=== PATIENT | male | born 1975 | race Caucasian/White ===

== ENCOUNTER 2023-11-17 10:23 | Outpatient (RCR) | payer BC, SELFPAY | END 2024-04-23 15:14 | disposition home or self-care (01) | LOC: HO.WCC 10:23 | PROVIDERS: PCP Family Medicine; Visit Provider Physician Assistant | DX: E11.622 Type 2 diabetes mellitus with other skin ulcer (principal); L97.812 Non-pressure chronic ulcer of other part of right lower leg with fat layer exposed; I87.2 Venous insufficiency (chronic) (peripheral); I10 Essential (primary) hypertension; Z79.899 Other long term (current) drug therapy | CPT/HCPCS: 11042; 97597; 99212 ==

== ENCOUNTER 2023-11-26 13:30 | Outpatient (REF) | payer BC, SELFPAY ==
--- NOTE | ~2023-11-26 | US_ITS ---
EXAMINATION: NONINVASIVE ASSESSMENT OF THE ARTERIES OF BOTH LOWER EXTREMITIES INCLUDING PVR EXAM AND BILATERAL LOWER EXTREMITY DUPLEX CLINICAL INFORMATION: PVD COMPARISON: None TECHNIQUE: Ankle pulse volume recordings, ankle pressure measurements and ankle brachial indices were obtained of the lower extremity arterial system bilaterally in addition to duplex Doppler techniques with wave form analysis and measurement of velocities in the common femoral, profunda femoral, superficial femoral, popliteal, tibial and peroneal arteries on the right. The study was performed only at rest. FINDINGS: RIGHT LEG 1. Right Ankle-Brachial Index: 1.28 (higher of the DP/PT) >0.97-1.25 = normal - no significant arterial disease 0.75-0.96 = mild peripheral arterial disease 0.5-0.74 = moderate peripheral arterial disease <0.50 = severe peripheral arterial disease <0.30 = critical arterial disease 2. Segmental Pressures (mmHg): Brachial: 117 Ankle: PT 150, DP 144 3. PVR Waveforms: Ankle: normal 4. Direct Duplex: Common femoral artery: 68.2 cm/s, Multiphasic Profunda femoris artery: 51 cm/s, Multiphasic Superficial femoral artery (proximal): 78.1 cm/s, Multiphasic Superficial femoral artery (mid): 70.2 cm/s, Multiphasic Superficial femoral artery (distal): 69.4 cm/s, Multiphasic Popliteal artery: 78.1 cm/s, Multiphasic Mid posterior tibial artery: 71.9 cm/s, Multiphasic Peroneal artery: 32.6 cm/s, Multiphasic Anterior tibial artery: 37.8 cm/s, Multiphasic Dorsalis pedis artery: 16 cm/s, Multiphasic LEFT LE. Left Ankle-Brachial Index: 1.59 (higher of the DP/PT) >0.97-1.25 = normal - no significant arterial disease 0.75-0.96 = mild peripheral arterial disease 0.5-0.74 = moderate peripheral arterial disease <0.50 = severe peripheral arterial disease <0.30 = critical arterial disease 2. Segmental Pressures: Brachial: 113 Ankle: PT 174, DP 186 3. PVR Waveforms: Ankle: normal US/US arterial duplex LE RT IMPRESSION: There is no evidence of any hemodynamically significant lower extremity arterial disease by pressure, waveform or duplex Doppler criteria at rest.
--- NOTE | ~2023-11-26 | US_ITS ---
EXAMINATION: NONINVASIVE ASSESSMENT OF THE ARTERIES OF BOTH LOWER EXTREMITIES INCLUDING PVR EXAM AND BILATERAL LOWER EXTREMITY DUPLEX CLINICAL INFORMATION: PVD COMPARISON: None TECHNIQUE: Ankle pulse volume recordings, ankle pressure measurements and ankle brachial indices were obtained of the lower extremity arterial system bilaterally in addition to duplex Doppler techniques with wave form analysis and measurement of velocities in the common femoral, profunda femoral, superficial femoral, popliteal, tibial and peroneal arteries on the right. The study was performed only at rest. FINDINGS: RIGHT LEG 1. Right Ankle-Brachial Index: 1.28 (higher of the DP/PT) >0.97-1.25 = normal - no significant arterial disease 0.75-0.96 = mild peripheral arterial disease 0.5-0.74 = moderate peripheral arterial disease <0.50 = severe peripheral arterial disease <0.30 = critical arterial disease 2. Segmental Pressures (mmHg): Brachial: 117 Ankle: PT 150, DP 144 3. PVR Waveforms: Ankle: normal 4. Direct Duplex: Common femoral artery: 68.2 cm/s, Multiphasic Profunda femoris artery: 51 cm/s, Multiphasic Superficial femoral artery (proximal): 78.1 cm/s, Multiphasic Superficial femoral artery (mid): 70.2 cm/s, Multiphasic Superficial femoral artery (distal): 69.4 cm/s, Multiphasic Popliteal artery: 78.1 cm/s, Multiphasic Mid posterior tibial artery: 71.9 cm/s, Multiphasic Peroneal artery: 32.6 cm/s, Multiphasic Anterior tibial artery: 37.8 cm/s, Multiphasic Dorsalis pedis artery: 16 cm/s, Multiphasic LEFT LE. Left Ankle-Brachial Index: 1.59 (higher of the DP/PT) >0.97-1.25 = normal - no significant arterial disease 0.75-0.96 = mild peripheral arterial disease 0.5-0.74 = moderate peripheral arterial disease <0.50 = severe peripheral arterial disease <0.30 = critical arterial disease 2. Segmental Pressures: Brachial: 113 Ankle: PT 174, DP 186 3. PVR Waveforms: Ankle: normal US/US [place] complete IMPRESSION: There is no evidence of any hemodynamically significant lower extremity arterial disease by pressure, waveform or duplex Doppler criteria at rest.
== END 2023-11-26 13:31 | disposition home or self-care (01) ==
LOC: HO.US 13:30
PROVIDERS: PCP Family Medicine; Visit Provider Physician Assistant
DX: I73.9 Peripheral vascular disease, unspecified (principal)
CPT/HCPCS: 93923; 93926

== ENCOUNTER 2024-01-22 12:31 | Outpatient (REF) | payer BC, SELFPAY ==
--- NOTE | ~2024-01-22 | US_ITS ---
EXAMINATION: US LOWER EXTREMITY (REFLUX EXAM), RIGHT CLINICAL INDICATION: Venous insufficiency COMPARISON: None. TECHNIQUE: Color flow triplex imaging and compression Doppler was performed to evaluate both the deep and the superficial systems of the right lower extremity. To evaluate the superficial system, the examination was performed in the upright position. Color-flow Doppler ultrasound and compression ultrasound were utilized. In addition, maneuvers were utilized to demonstrate reflux. FINDINGS: 1. DEEP VENOUS DOPPLER ULTRASOUND: Common Femoral Vein: Compressible, normal respiratory variation and augmented flow. Femoral Vein: Compressible, normal color flow and augmentation. Popliteal Vein: Compressible, normal augmentation. Deep Reflux: There 1616 ms of reflux in the right common femoral vein. There is no evidence of a Foy's cyst. 2. SUPERFICIAL VENOUS DOPPLER ULTRASOUND: GREAT SAPHENOUS VEIN: Saphenofemoral Junction: 0.5 cm; Reflux: 0 ms Proximal Thigh: 0.6 cm; Reflux: 0 ms Mid Thigh: 0.4 cm; Reflux: 0 ms Above Knee: 0.4 cm; Reflux: 0 ms At Knee: 0.3 cm; Reflux: 0 ms Below Knee: 0.3 cm; Reflux: 2516 ms Mid Calf: 0.2 cm; Reflux: 0 ms Ankle: 0.2 cm; Reflux: 0 ms DUPLICATED MEDIAL GREAT SAPHENOUS VEIN: Diameter: None Imaged Reflux: NA DUPLICATED LATERAL GREAT SAPHENOUS VEIN: Diameter: 0.4 cm Reflux: 0 ms SMALL SAPHENOUS VEIN: Proximal: 0.5 cm; Reflux: 0 ms Distal: 0.2 cm; Reflux: 0 ms VEIN OF GIACOMINI: None Imaged. PERFORATORS: Location: Mid calf Size: 0.2 cm Reflux: 0 ms Location: Distal calf Size: 0.2 cm Reflux: 0 ms VARICOSITIES: Location: Small saphenous vein mid Size: 0.3 cm Reflux: 0 ms Location: GSV mid thigh Size: 0.3 cm Reflux: 0 ms Location: GSV distal thigh Size: 0.3 cm Reflux: 0 ms Location: GSV at knee Size: 0.3 cm Reflux: 0 ms Location: GSV distal calf Size: 0.2 ms Reflux: 0 ms US/US venous duplex LE RT IMPRESSION: 1. The below knee segment of the great saphenous vein measures 0.3 cm with 2516 ms of reflux. 2. Deep system reflux of 1616 ms in the right common femoral vein. 3. Multiple nonrefluxing perforators and varicosities noted in the right lower extremity.
== END 2024-01-22 12:32 | disposition home or self-care (01) ==
LOC: HO.US 12:31
PROVIDERS: PCP Family Medicine; Visit Provider Physician Assistant
DX: I87.2 Venous insufficiency (chronic) (peripheral) (principal)
CPT/HCPCS: 93971